=== PATIENT | male | born 1990 | race Caucasian/White ===

== ENCOUNTER 2022-10-24 11:52 | Inpatient (IN) | payer OTHER, MEDICAID ==
[~2022-10-24 11:52] MED LIST: LACTATED RINGERS 1,000 ML IV ONE; LACTATED RINGERS 100 ML IV ONE
[2022-10-24 12:26] LABS: BASOPHILS % (AUTO) 0.6 %; EOSINOPHILS # (AUTO) 0.3 10^3/uL (0.0-0.7); EOSINOPHILS % (AUTO) 3.7 %; HCT - HEMATOCRIT 41.1 % (42.0-52.0); HGB - HEMOGLOBIN 14.1 g/dL (14.0-18.0); LYMPHOCYTES % (AUTO) 29.2 %; MEAN CORPUSCULAR HEMOGLOBIN 29.4 pg (27.0-31.0); MEAN CORPUSCULAR HGB CONC 34.3 g/dL (32.0-36.0); MEAN CORPUSCULAR VOLUME 85.8 fL (80.0-94.0); MEAN PLATELET VOLUME 9.8 fL (7.4-11.4); MONOCYTES # (AUTO) 0.6 10^3/uL (0.0-1.0); MONOCYTES % (AUTO) 8.3 %; NEUTROPHILS % (AUTO) 57.5 %; PLT - PLATELET COUNT 205 10^3/uL (130-450); RED BLOOD COUNT 4.79 10^6/uL (4.70-6.10); RED CELL DISTRIBUTION WIDTH 12.8 % (12.0-15.0)
[2022-10-24 12:27] LABS: BILIRUBIN,URINE NEGATIVE (NEGATIVE); GLUCOSE, URINE (UA) NEGATIVE (NEGATIVE); KETONES,URINE (UA) NEGATIVE (NEGATIVE); LEUKOCYTE ESTERASE, URINE NEGATIVE (NEGATIVE); NITRITE,URINE NEGATIVE (NEGATIVE); OCCULT BLOOD,URINE NEGATIVE (NEGATIVE); PROTEIN,URINE NEGATIVE (NEGATIVE); UROBILINOGEN,URINE 0.2 (NORMAL) E.U./dL (NORMAL)
[2022-10-24 12:35] LABS: CLARITY,URINE CLEAR (CLEAR)
[2022-10-24 12:50] LABS: ALBUMIN 4.3 g/dL (3.2-5.5); ALBUMIN/GLOBULIN RATIO 1.1 (1.0-2.2); BILIRUBIN,TOTAL 0.6 mg/dL (0.2-1.0); CALCIUM 8.9 mg/dL (8.5-10.3); CREATININE 0.7 mg/dL (0.6-1.2); POTASSIUM 3.6 mmol/L (3.5-5.0); TOTAL PROTEIN 8.1 g/dL (6.7-8.2)
--- NOTE | 2022-10-24 15:23 | ED Physician Documentation ---
History of Present Illness - Stated complaint Stated Complaint: ABD PX - Chief complaint Chief Complaint: Abd Pain - Additonal information Additional information: 32-year-old male presents emergency department for evaluation of 24 hours pain in his right lower quadrant with some radiation to the right groin and testicle. He has had some mild diarrhea. Some nausea no vomiting. No fevers. No urinary symptoms or hematuria. No history of similar. No pertinent past surgical history. Patient does have a history of hypertension for which he takes medication as well as Lexapro for anxiety/depression Review of Systems Constitutional: reports: Reviewed and negative Throat: reports: Reviewed and negative Cardiac: reports: Reviewed and negative Respiratory: reports: Reviewed and negative GI: reports: Abdominal Pain, Nausea. denies: Vomiting : reports: Reviewed and negative Skin: reports: Reviewed and negative PD PAST MEDICAL HISTORY - Present Medications Home Medications: Ambulatory Orders Medication Instructions Recorded Confirmed Escitalopram [Lexapro] 10 mg PO DAILY 10/24/22 10/24/22 HYDROcod/ACETAM 5/325 [[place] 5/325] 1 each PO Q6H PRN #25 tablet 10/24/22 amLODIPine [Norvasc] 5 mg PO DAILY 10/24/22 10/24/22 - Allergies Allergies/Adverse Reactions: Allergies Allergy/AdvReac Type Severity Reaction Status Date / Time No Known Drug Allergies Allergy Verified 10/24/22 12:04 PD ED PE NORMAL - General General: Alert and oriented X 3, No acute distress - HEENT HEENT: PERRL - Cardiac Cardiac: RRR, No murmur - Respiratory Respiratory: No respiratory distress, Clear bilaterally - Abdomen Abdomen: Normal bowel sounds, Soft. No: Non tender (Mild tenderness elicited very low in the right lower quadrant without guarding or rebound. Unremarkable male exam. Abdominal exam was limited somewhat by body habitus) - Back Back: No CVA TTP, No spinal TTP - Derm Derm: Normal color, Warm and dry - Extremities Extremities: No deformity, No tenderness to palpate - Neuro Neuro: Alert and oriented X 3, vamp marker 2-12 intact Eye Opening: Spontaneous Motor: Obeys Commands Verbal: Oriented GCS Score: 15 Results - Vitals Vitals: Vital Signs - 24 hr 10/24/22 10/24/22 12:00 15:37 Temperature 36.8 C Heart Rate 82 80 Respiratory 18 18 Rate Blood Pressure 159/93 H 166/97 H O2 Saturation 99 100 Oxygen O2 Source Room air - Labs Labs: Laboratory Tests 10/24/22 10/24/22 10/24/22 12:06 12:20 12:20 WBC 7.0 RBC 4.79 Hgb 14.1 Hct 41.1 L MCV 85.8 MCH 29.4 MCHC 34.3 RDW 12.8 Plt Count 205 MPV 9.8 Neut # (Auto) 4.0 Lymph # (Auto) 2.0 [place] # (Auto) 0.6 Eos # (Auto) 0.3 Baso # (Auto) 0.0 Absolute Nucleated RBC 0.00 Nucleated RBC % 0.0 Sodium 137 Potassium 3.6 Chloride 102 Carbon Dioxide 27 Anion Gap 8.0 BUN 13 Creatinine 0.7 Estimated GFR (MDRD) 130 Glucose 106 H Calcium 8.9 Total Bilirubin 0.6 AST 32 ALT 68 H Alkaline Phosphatase 90 Total Protein 8.1 Albumin 4.3 Globulin 3.8 Albumin/Globulin Ratio 1.1 Lipase 35 Urine Color YELLOW Urine Clarity CLEAR Urine pH 7.0 Ur Specific [place] 1.015 Urine Protein NEGATIVE Urine Glucose (UA) NEGATIVE Urine Ketones NEGATIVE Urine Occult Blood NEGATIVE Urine Nitrite NEGATIVE Urine Bilirubin NEGATIVE Urine Urobilinogen 0.2 (NORMAL) Ur Leukocyte Esterase NEGATIVE Ur Microscopic Review NOT INDICATED Urine Culture Comments NOT INDICATED - Rads (name of study) CT abd Radiology: Final report received (Mild early appendicitis. No findings of perforation or abscess are seen) PD Medical Decision Making - ED course Complexity details: reviewed results, re-evaluated patient, considered differential, d/w patient, d/w consultant teacher (Cirilo) ED course: 32-year-old male presents to the emergency department for evaluation of acute right lower quadrant abdominal pain with radiation to the right groin and testicle. Symptoms began yesterday. Some nausea no vomiting. No fevers. On exam he does have mildly tender right lower quadrant. Exam was somewhat limited due to body habitus. We did obtain a CBC and electrolytes here in the emergency department and no acute worrisome findings were seen such as leukocytosis or renal derangement. We did proceed to do a CT of the abdomen looking for renal or ureter colic versus possible acute appendectomy. The radiologist is interpreted the findings as early appendicitis. I discussed the CT finding with Dr. Julius Kerr surgeon on-call. The plan is to take the patient to the operating room later this grecia valenzuela. I will administer a dose of Zosyn. Dr. Kerr has requested that we make a prepack of pain medication available to the patient postoperatively which I have also prescribed. Patient is NPO. Patient is aware of the plan and findings. Further care to be dictated by the surgical team. Departure - Departure Disposition: ED Transfer to [facility] Clinical Impression: Acute appendicitis Qualifiers: Acute appendicitis type: other Qualified Code(s): K35.890 - Other acute appendicitis without perforation or gangrene; K35.89 - Other acute appendicitis Prescriptions: HYDROcod/ACETAM 5/325 [[place] 5/325] 1 each PO Q6H PRN #25 tablet PRN Reason: Pain
[2022-10-24] MEDS ORDERED: iohexoL-300 100 ML VIAL ONE (15:25)
[2022-10-24] MEDS ORDERED: iohexoL-300 100 ML VIAL IVP ONE (15:53)
--- NOTE | 2022-10-24 16:05 | CT Report ---
PROCEDURE: ABDOMEN/PELVIS W INDICATIONS: RLQ pain radiates to testicle CONTRAST: 100ml omni 300 TECHNIQUE: After the administration of IV contrast, 5 mm thick sections acquired from the diaphragms to the symp hysis. 5 mm thick coronal and sagittal reformats were acquired. For radiation dose reduction, the f ollowing was used: automated exposure control, adjustment of mA and/or kV according to patient size. COMPARISON: None. FINDINGS: Image quality: Excellent. ABDOMEN: Lung bases: Lung bases are clear. Heart size is normal. A pericardial cyst is noted on the right, as on series 3 image 5, measuring 2.6 cm. Solid organs: Diffuse fatty liver infiltration can be seen. The liver is prominent in size. No foca l suspicious liver lesions are seen. The spleen is enlarged, measuring 17.2 cm in greatest axial dime nsion. No adrenal nodules. Kidneys demonstrate normal size and enhancement, without hydronephrosis. Peritoneum and bowel: In this patient with this given history, scrutiny is given to the appendix. Th e appendix is mildly hyperenhancing, with wall thickening, with a maximum caliber of 7 mm. Mild surro unding inflammatory change can be seen. This can be seen on series 6 images 36 through 41 and on seri es 3 images 55 through 72. No findings of perforation or abscess can be seen. No dilated loops of small bowel are seen. No significant colonic abnormality can be seen. The stomach is relatively decompressed. Nodes and vessels: No retroperitoneal or mesenteric adenopathy by size criteria. Aorta and inferior vena cava are normal in size. Incidental note is made of a retroaortic left renal vein. Miscellaneous: A mild fat-containing periumbilical hernia is seen. PELVIS: Genitourinary: Bladder wall thickness is normal. Miscellaneous: No inguinal hernias or adenopathy. Bones: No suspicious bony lesions. No vertebral body compression fractures. IMPRESSION: Mild/early appendicitis. No findings of perforation or abscess are seen. Additional findings: Right-sided pericardial cyst Enlarged, fatty liver Splenomegaly Retroaortic left renal vein Fat-containing periumbilical hernia Note: Case discussed by telephone with Kavita Christian at 3:03 PM [place] time on 10/24/2022. Reviewed by: Konstantin Jones MD on 10/24/2022 3:04 PM [place] Approved by: Konstantin Jones MD on 10/24/2022 3:04 PM [facility] Station ID: [id number]
[2022-10-24] MEDS ORDERED: SODIUM CHLORIDE 0.9% 1,000 ML IV STA (16:42)
[2022-10-24] MEDS ORDERED: oxyCODONE/ACET 5/325 Prepack 4 PO STA (16:50)
[2022-10-24] MEDS ORDERED: PIPERACILLIN/TAZOBACTAM 3.375 GM in SODIUM CHLORIDE 0.9% MINIBAG 100 ML IV STA (16:52)
[2022-10-24] MEDS ORDERED: fentaNYL 100 MCG/2 ML VIAL ONE ×2 (18:54→22:18)
[2022-10-24] MEDS ORDERED: PROPOFOL 200 MG/20 ML VIAL IVP ONE (18:54)
[2022-10-24] MEDS ORDERED: MIDAZOLAM 2 MG/2 ML VIAL ONE (18:54)
[2022-10-24] MEDS ORDERED: ROCURONIUM 50 MG/5 ML VIAL ONE ×2 (18:54→20:14)
[2022-10-24] MEDS ORDERED: BUPIVACAINE 0.5% PF 30 ML VIAL ONE (19:09)
[2022-10-24] MEDS ORDERED: LIDOCAINE MPF 2%-EPI 1:200000 20 ML VIAL ONE (19:09)
--- NOTE | 2022-10-24 19:13 | ANESTHESIA ---
Pre-Anesthesia VS, & Labs - Diagnosis acute appendicitis - Procedure Lap Appy Vital Signs: Temp Pulse Resp BP Pulse Ox O2 Flow Rate 36.8 C 79 18 151/93 H 99 10/24/22 18:52 10/24/22 18:52 10/24/22 18:52 10/24/22 18:52 10/24/22 18:52 Height: 5 ft 9 in Weight (kg): 142.428 kg Body Mass Index: 46.3 BMI Classification: Morbidly Obese - NPO >8 hours - Lab Results Current Lab Results: Laboratory Tests 10/24/22 12:20: Sodium 137, Potassium 3.6, Chloride 102, Carbon Dioxide 27, Anion Gap 8.0, BUN 13, Creatinine 0.7, Estimated GFR (MDRD) 130, Glucose 106 H, Calcium 8.9, Total Bilirubin 0.6, AST 32, ALT 68 H, Alkaline Phosphatase 90, Total Protein 8.1, Albumin 4.3, Globulin 3.8, Albumin/Globulin Ratio 1.1, Lipase 35 10/24/22 12:20: WBC 7.0, RBC 4.79, Hgb 14.1, Hct 41.1 L, MCV 85.8, MCH 29.4, MCHC 34.3, RDW 12.8, Plt Count 205, MPV 9.8, Neut # (Auto) 4.0, Lymph # (Auto) 2.0, [place] # (Auto) 0.6, Eos # (Auto) 0.3, Baso # (Auto) 0.0, Absolute Nucleated RBC 0.00, Nucleated RBC % 0.0 Lab results reviewed: Yes Fish Bones: 10/24/22 12:20 10/24/22 12:20 Home Medications and Allergies Home Medications: Ambulatory Orders Escitalopram [Lexapro] 10 mg PO DAILY 10/24/22 amLODIPine [Norvasc] 5 mg PO DAILY 10/24/22 Escitalopram [Lexapro] 10 mg PO DAILY 10/24/22 amLODIPine [Norvasc] 5 mg PO DAILY 10/24/22 Allergies/Adverse Reactions: Allergies Allergy/AdvReac Type Severity Reaction Status Date / Time No Known Drug Allergies Allergy Verified 10/24/22 12:04 Anes History & Medical History - Anesthetic History Family history of Anesthesia Complications: Denies Family history of Malignant Hyperthermia: Denies - Medical History Cardiovascular: reports: Hypertension Pulmonary: reports: Sleep apnea, CPAP use Gastrointestinal: reports: Other (fatty liver) Urinary: reports: None 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, bells palsy) Musculoskeletal: reports: Chronic back pain Endocrine/Autoimmune: reports: None Blood Disorders: reports: None Skin: reports: None Smoking Status: Current some day smoker (smokes cigars 3-4 times per week.) Psychosocial: reports: Depression History of Cancer?: No Other Past Medical History: fatty liver, "mass" on cerebellum - Surgical History General: reports: Colonoscopy Other Past Surgical History: wisdom teeth Exam General: Alert, Oriented x3, Cooperative, No acute distress Dental: WNL Mouth Openin Fingerbreadth Neck Mobility: Normal Mallampati classification: III Thyromental Distance: 4-6 cm Mental/Cognitive Status: Alert/Oriented X3, Normal for patient Plan Anesthesia Type: General Consent for Procedure(s) Verified and Reviewed: Yes Code Status: Attempt Resuscitation ASA classification: 3-Severe systemic disease Is this case an emergency?: Yes
--- NOTE | 2022-10-24 19:24 | HISTORY & PHYSICAL EXAMINATION ---
Chief Complaint - Chief Complaint Chief Complaint: right lower quadrant pain x 24 hours History of Present Illness - Admitted From Admitted From:: ED - History Obtained From Records Reviewed: yes History obtained from: pt Exam Limitations: none - History of Present Illness HPI Comment/Other: no n/v. last pm this am. 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 - Past Surgical History General: reports: Colonoscopy Other past surgical history: wisdom teeth - POLST Patient has POLST: No Meds/Allgy - Home Medications Home Medications: Ambulatory Orders Medication Instructions Recorded Confirmed Escitalopram [Lexapro] 10 mg PO DAILY 10/24/22 10/24/22 HYDROcod/ACETAM 5/325 [[place] 5/325] 1 each PO Q6H PRN #25 tablet 10/24/22 amLODIPine [Norvasc] 5 mg PO DAILY 10/24/22 10/24/22 - Allergies Allergies/Adverse Reactions: Allergies Allergy/AdvReac Type Severity Reaction Status Date / Time No Known Drug Allergies Allergy Verified 10/24/22 12:04 Review of Systems - Other Findings Other Findings: sleep apnea. has cpap at home 10 pt ros as above otherwise unremarkable Exam - Vital Signs Reviewed Vital Signs: Yes Vital Signs: Vital Signs x48h Temp Pulse Resp BP Pulse Ox 10/24/22 18:52 36.8 C 79 18 151/93 H 99 10/24/22 18:00 72 18 143/89 H 99 10/24/22 15:37 80 18 166/97 H 100 10/24/22 12:00 36.8 C 82 18 159/93 H 99 - Physical Exam General Appearance: positive: No acute distress, Alert Eyes Bilateral: positive: PERRL, EOMI ENT: positive: No signs of dehydration Neck: positive: No JVD Respiratory: positive: No respiratory distress, Breath sounds nml Cardiovascular: positive: Regular rate & rhythm Abdomen: positive: No distention, Other (minimal rlq tenderness without peritonitis) Neurologic/Psychiatric: positive: Oriented x3 Conclusion/Plan - Problem List (1) Acute appendicitis Conclusion/Plan: plan appendectomy. parq held and consent obtained. Qualifiers: Acute appendicitis type: other Qualified Code(s): K35.890 - Other acute appendicitis without perforation or gangrene; K35.89 - Other acute appendicitis - Lab Results Lab results reviewed: Yes Fish Bones: 10/24/22 12:20 10/24/22 12:20
[2022-10-24] MEDS ORDERED: MORPHINE 2 MG/ML CARPUJECT IVP PRN (19:30)
[2022-10-24] MEDS ORDERED: NALOXONE 0.4 MG/ML VIAL IVP PRN (19:30)
[2022-10-24] MEDS ORDERED: ONDANSETRON 4 MG/2 ML VIAL IVP PRN ×2 (19:30→21:26)
[2022-10-24] MEDS ORDERED: ATROPINE ABBOJECT 1 MG/10 ML SYRINGE IVP PRN (19:30)
[2022-10-24] MEDS ORDERED: HYDROmorphone 0.5 MG/0.5 ML SYRINGE IVP PRN ×2 (19:30→21:26)
[2022-10-24] MEDS ORDERED: ONDANSETRON 4 MG/2 ML VIAL ONE (19:44)
[2022-10-24] MEDS ORDERED: DEXAMETHASONE 4 MG/ML VIAL ONE (19:44)
[2022-10-24] MEDS ORDERED: LACTATED RINGERS 1,000 ML IV SCH (20:00)
[2022-10-24] MEDS ORDERED: HYDROmorphone 1 MG/ML CARPUJECT ONE (20:15)
[2022-10-24] MEDS ORDERED: LACTATED RINGERS 1,000 ML IV ONE (21:05)
[2022-10-24] MEDS ORDERED: SUGAMMADEX 200 MG/2 ML VIAL IVP ONE ×2 (21:06)
[2022-10-24] MEDS ORDERED: KETOROLAC 30 MG/ML VIAL ONE (21:09)
[2022-10-24] MEDS ORDERED: BUPIVACAINE 0.5% PF 30 ML VIAL INFIL ONE (21:12)
[2022-10-24] MEDS ORDERED: LIDOCAINE MPF 2%-EPI 1:200000 10 ML VIAL SUBQ ONE (21:13)
[2022-10-24] MEDS ORDERED: HYDROcod/ACETAM 5/325 MG TABLET PO PRN (21:26)
--- NOTE | 2022-10-24 21:33 | OPERATIVE REPORT ---
Operative Report - General Procedure Date: 10/24/22 Planned Procedure: lap appendectomy Pre-Op Diagnosis: acute appendicitis Procedure Performed: lap appendectomy extra degree difficulty Post Op Diagnosis: acute appenditis - Procedure Note Primary Surgeon: ora ferrer Anesthesia Technique: General ET tube, Local Pathology: appendix Estimated Blood Loss (mL): 5 Drain/Tube Type: Other (none) Indications: appendicitis Findings: retrocecal appendix and adherent back side colon up to the liver and duodenum making surgery unusually difficult Complications: none - Other Other Information/Narrative: The patient was properly identified brought to the operating room and placed in supine position. General endotracheal anesthesia was induced. Sequential com pression devices were placed. He was prepped and draped in a sterile fashion. He had previously been given antibiotics 2 hours earlier. Local anesthetic was given to incision areas. He had mild weakness at his umbilicus however no hernia. Incision was made 3 cm caudad of the umbilicus. Dissection proceeded down to the fascia fascia was incised lifted upwards and abdomen entered with a Veress needle. CO2 was insufflated to a pressure of 15. A 12 mm trocar was placed with 30 degree scope. There was no evidence of injury from Veress needle or trocar placement. Under direct vision a 5 mm trocar was placed suprapubic and a 5 mm trocar was placed in the right upper quadrant. The base of the appendix was identified. Except for 2 cm it was completely retrocecal under the right colon up to the liver edge and adherent to the duodenum. The appendix was approximately 8 cm long or longer. An hour of time was taken to carefully mobilized the appendix from underneath the right colon and off from the duodenum. The mesoappendix was very long given the appendix was 8 to 10 cm long. Some of the mesoappendix was taken down with cautery right at the appendix and the more thick mesoappendix was carefully taken down with 3 vascular loads. The base of the appendix had previously been divided with an Endo RIMA intestinal load. Appendix was removed. The abdomen was irrigated. Hemostasis was assured. Trochars were removed and again hemostasis assured. CO2 was evacuated and fascia at the infraumbilical site closed with a running 0 Vicryl suture. Subcutaneous tissue was irrigated and skin loosely reapproximated with buried interrupted or running 4-0 Monocryl subcuticular suture. Dressings were applied. He tolerated the procedure well was awakened and brought to recovery in good condition.
[2022-10-24] MEDS ORDERED: NALOXONE 0.4 MG/ML VIAL ONE (21:38)
[2022-10-24] MEDS ORDERED: OXYMETAZOLINE HCL 100 SPRAYS BOTTLE ONE (21:52)
[2022-10-24] MEDS: fentaNYL 100 MCG/2 ML VIAL IVP PRN ×4 (22:20→22:45)
--- NOTE | 2022-10-24 22:28 | CONSULTATION NOTE ---
Consultation Report: Emergence note: TOF 4/4 and reversed with 2mg/Kg sugammadex. Patient was taking adequate TV >500ml and was reaching towards ETT and attempting to sit up. Patient was extubated and placed on 10L O2 via mask. Immediately after extubation, he had snoring respirations and maintaining airway patency became difficult despite jaw lift and positive pressure. His O2 sats dropped into the 70s. A 32FR nasal airway (right nare) and a 100mm oral airway were inserted and airway patency was verified. Patient was placed on PS 15, and PEEP of 5. With airway patent (TV>500ml and ETCO2 present) continued to have difficulty maintaining O2 saturations (High 80s). Patient would not arouse so narcan 0.4mg was given IV. Patient's mentation improved and airways were removed when he could follow directions. He was able to maintain airway patency but began coughing blood tinged sputum. Upon arrival to the PACU, patient was alert, conversing but continued to cough up blood tinged sputum. Right nare was sprayed with oxymetazoline nasal spray x3 for suspected bleeding. O2 sats improved to low 90s with nasal cannula in PACU. Bilateral breath sounds were equal with rhonchi throughout all lung [place]. Chest xray was obtained and was normal except for an enlarged heart. Case discussed with Dr. Kerr and patient will be staying overnight for observation. Discussed events with patient and patient's spouse. I advised he see a PCP [facility] for severe sleep apnea followup.
--- NOTE | 2022-10-24 22:39 | XRAY Report ---
PROCEDURE: Chest 1 View X-Ray INDICATIONS: coughing blood. rule out pulmonary edema TECHNIQUE: One view of the chest was acquired. COMPARISON: None. FINDINGS: Surgical changes and devices: None. Lungs and pleura: No pleural effusions or pneumothorax. Lungs are clear. Mediastinum: Mediastinal contours appear normal. Heart size is enlarged. Bones and chest wall: No suspicious bony lesions. Overlying soft tissues appear unremarkable. IMPRESSION: No acute pulmonary process. Reviewed by: Gabi Avalos MD on 10/24/2022 10:38 PM [facility] Approved by: Gabi Avalos MD on 10/24/2022 10:38 PM [facility] Station ID: [id number]
[2022-10-24] MEDS ORDERED: KETOROLAC 15 MG/ML VIAL ONE (22:43)
[2022-10-24] MEDS ORDERED: KETOROLAC 15 MG/ML VIAL IVP SCH (23:00)
[2022-10-25] MEDS ORDERED: HYDROmorphone 0.5 MG/0.5 ML SYRINGE ONE (00:02)
[2022-10-25] MEDS ORDERED: ONDANSETRON 4 MG/2 ML VIAL IVP PRN (02:14)
[2022-10-25] MEDS: HYDROmorphone 0.5 MG/0.5 ML SYRINGE IVP PRN ×2 (02:24→08:45)
[2022-10-25 09:02] LABS: ABG PH 7.39 (7.35-7.45)
[2022-10-25 09:03] LABS: ABG BASE EXCESS -0.5 mmol/L (-2.0-3.0); ABG HCO3 24.4 mmol/L (22.0-26.0); ABG OXYGEN SATURATION 91 % (94-98); ABG PCO2 41 mmHg (34-45); ABG PO2 57 mmHg (80-100); ABG TCO2 25.7 MMOL/L (21.0-29.0); ALLEN TEST POSITIVE
[2022-10-25] MEDS ORDERED: HYDROmorphone 1 MG/ML CARPUJECT ONE (09:03)
[2022-10-25] MEDS: HYDROcod/ACETAM 5/325 MG TABLET PO PRN (12:59)
--- NOTE | 2022-10-25 14:38 | PROVIDER PROGRESS NOTE ---
Subjective - Subjective Pt reports feeling: Improved (breathing improved. no appetite) Objective - Vital Signs/Intake & Output Reviewed Vital Signs: Yes Vital Signs: Vital Signs x48h Temp Pulse Pulse Resp BP BP Pulse Ox 10/25/22 11:16 37.0 C 88 22 123/65 94 10/25/22 09:40 10/25/22 07:47 37.5 C 105 H 24 118/65 86 L O2 Flow Rate 10/25/22 11:16 15 10/25/22 09:40 15 10/25/22 07:47 Intake & Output: Intake & Output 10/22/22 10/23/22 10/24/22 10/25/22 23:59 23:59 23:59 23:59 Intake Total 1100 Balance 1100 - Objective General Appearance: positive: No acute distress, Alert Eyes Bilateral: positive: PERRL, EOMI Neck: positive: No JVD, Trachea midline Respiratory: positive: No respiratory distress Abdomen: positive: No distention, Other (benign abdomen) Neurologic/Psychiatric: positive: Oriented x3 - Lab Results Fish Bones: 10/24/22 12:20 10/24/22 12:20 Other Labs: Lab Results x24hrs 10/25/22 10/24/22 Range/Units 08:40 17:40 Bld Gas Analysis Time 0847 Sample Site RIGHT RADIAL ABG pH 7.39 (7.35-7.45) ABG pCO2 41 (34-45) mmHg ABG pO2 57 L (80-100) mmHg ABG HCO3 24.4 (22.0-26.0) mmol/L ABG Total CO2 25.7 (21.0-29.0) MMOL/L ABG O2 Saturation 91 L (94-98) % ABG Base Excess -0.5 (-2.0-3.0) mmol/L Del Test POSITIVE O2 Delivery Device OXYMIZER O2 Liters/Min 15.00 LPM SARS-CoV-2 (PCR) NOT DETECTED Assessment/Plan - Problem List (1) Acute appendicitis Impression: low sats post surgery with low lung volumes and copious secretions. slowly improving encouraged out of bed diet as tolerated home when RA sats 88 to 90 % he has very significant sleep apnea and may have had mild negative pressure pulmonary edema although not seen on cxr Qualifiers: Acute appendicitis type: other Qualified Code(s): K35.890 - Other acute appendicitis without perforation or gangrene; K35.89 - Other acute appendicitis
[2022-10-25] MEDS ORDERED: BENZOCAINE/MENTHOL LOZENGE MM PRN (19:19)
[2022-10-25] MEDS: IBUPROFEN 400 MG TABLET PO PRN (21:16)
[2022-10-25] MEDS: ACETAMINOPHEN 325 MG TABLET PO PRN (21:16)
[2022-10-25] MEDS: FAMOTIDINE 20 MG TABLET PO SCH (21:16)
[2022-10-26] MEDS: HYDROcod/ACETAM 5/325 MG TABLET PO PRN ×2 (02:27→13:07)
[2022-10-26] MEDS: ACETAMINOPHEN 325 MG TABLET PO PRN ×3 (05:56→21:22)
[2022-10-26] MEDS: IBUPROFEN 400 MG TABLET PO PRN ×2 (05:57→17:21)
[2022-10-26] MEDS: amLODIPine 5 MG TABLET PO SCH (09:02)
[2022-10-26] MEDS: ESCITALOPRAM 10 MG TABLET PO SCH (09:02)
[2022-10-26] MEDS: FAMOTIDINE 20 MG TABLET PO SCH ×2 (09:02→21:22)
--- NOTE | 2022-10-26 11:31 | PROVIDER PROGRESS NOTE ---
Subjective - Prog Note Date Prog Note Date: 10/26/22 - Subjective Pt reports feeling: Improved (breathing improved and appetite improved.) Objective - Vital Signs/Intake & Output Reviewed Vital Signs: Yes Vital Signs: Vital Signs x48h Temp Pulse Resp BP Pulse Ox O2 Flow Rate 10/26/22 08:49 36.9 C 100 18 139/70 H 95 15 10/26/22 05:07 37.8 C 98 22 127/66 94 15 Intake & Output: Intake & Output 10/23/22 10/24/22 10/25/22 10/26/22 23:59 23:59 23:59 23:59 Intake Total 1100 890 810 Output Total 1400 Balance 1100 890 -590 - Objective General Appearance: positive: No acute distress, Alert Eyes Bilateral: positive: PERRL, EOMI Respiratory: positive: No respiratory distress Abdomen: positive: Non-tender, No distention Neurologic/Psychiatric: positive: Oriented x3 - Lab Results Fish Bones: 10/24/22 12:20 10/24/22 12:20 Assessment/Plan - Problem List (1) Acute appendicitis Impression: low sats and significant pulmonary secretions following surgery. improving. home when room air sats > 88% d/c ivf otherwise continue present care and respiratory care per RT Qualifiers: Acute appendicitis type: other Qualified Code(s): K35.890 - Other acute appendicitis without perforation or gangrene; K35.89 - Other acute appendicitis
--- NOTE | 2022-10-26 16:49 | PROVIDER PROGRESS NOTE ---
Subjective - Subjective Subjective: patient and/or family are requesting transfer to [facility] Objective - Vital Signs/Intake & Output Vital Signs: Vital Signs x48h Temp Pulse Resp BP Pulse Ox O2 Flow Rate 10/26/22 15:56 37.8 C 101 H 22 140/74 H 92 10 10/26/22 14:21 13 10/26/22 13:46 92 10 10/26/22 13:16 36.5 C 101 H 20 124/66 92 10 10/26/22 08:49 36.9 C 100 18 139/70 H 95 15 Intake & Output: Intake & Output 10/23/22 10/24/22 10/25/22 10/26/22 23:59 23:59 23:59 23:59 Intake Total 9228 991 8180 Output Total 1400 Balance 1100 890 -110 - Lab Results Fish Bones: 10/24/22 12:20 10/24/22 12:20 Assessment/Plan - Problem List (1) Acute appendicitis Impression: improving. benign abdomen tolerating diet. afebrile clinically he had postop negative pressure pulmonary edema with pink frothy secretions and low sats. his bmi is 46 and he has severe sleep apnea. he is improving with standard supportive measures. request has been made for transfer to [facility] where pulmonary doctors are available. I called and discussed transfer with surgery and tank house operator helper. surgery felt he did not need to be transferred to surgery. medicine would be better. supervisor train operations informed me they have 113 patients in the ED and 40 are boardin g/ waiting for a room. transfer is currently not possible to [facility]. I have asked [facility] nurse to inform him transfer is not possible due to no beds available. He is improving. I do not recommend he leave until room air sats >88 %. Qualifiers: Acute appendicitis type: other Qualified Code(s): K35.890 - Other acute appendicitis without perforation or gangrene; K35.89 - Other acute appendicitis
[2022-10-26] MEDS: ENOXAPARIN 40 MG/0.4 ML SYRINGE SUBQ SCH (21:22)
[2022-10-27] MEDS: IBUPROFEN 400 MG TABLET PO PRN ×4 (00:03→20:51)
[2022-10-27] MEDS: ACETAMINOPHEN 325 MG TABLET PO PRN ×3 (06:33→20:52)
[2022-10-27] MEDS: FAMOTIDINE 20 MG TABLET PO SCH ×2 (09:01→20:51)
[2022-10-27] MEDS: amLODIPine 5 MG TABLET PO SCH (09:01)
[2022-10-27] MEDS: ESCITALOPRAM 10 MG TABLET PO SCH (09:01)
--- NOTE | 2022-10-27 09:32 | PROVIDER PROGRESS NOTE ---
Subjective - Subjective Pt reports feeling: Improved Subjective: sitting in chair. appears well. still having chest discomfort however improved Objective - Vital Signs/Intake & Output Reviewed Vital Signs: Yes Vital Signs: Vital Signs x48h Temp Pulse Resp BP Pulse Ox O2 Flow Rate 10/27/22 08:58 37.3 C 89 16 124/68 96 10/27/22 08:35 10 10/27/22 05:00 37.0 C 88 20 135/73 H 98 10 Intake & Output: Intake & Output 10/24/22 10/25/22 10/26/22 10/27/22 23:59 23:59 23:59 23:59 Intake Total 4665 962 8441 790 Output Total 1400 Balance 1100 890 640 790 - Objective General Appearance: positive: No acute distress, Alert Eyes Bilateral: positive: PERRL, EOMI, No scleral icterus Neck: positive: No JVD, Trachea midline Respiratory: positive: No respiratory distress Abdomen: positive: Non-tender, No distention Neurologic/Psychiatric: positive: Oriented x3 - Lab Results Fish Bones: 10/24/22 12:20 10/24/22 12:20 Assessment/Plan - Problem List (1) Acute appendicitis Impression: he had classic findings on exam and symptoms of immediate postop negative pressure pulmonary edema. he is improving with supportive care. benign abdomen. tolerating diet. I do not believe additional work up would be beneficial. home when comfortable ambulating and room air sats >88 to 90 Qualifiers: Acute appendicitis type: other Qualified Code(s): K35.890 - Other acute appendicitis without perforation or gangrene; K35.89 - Other acute appendicitis
[2022-10-27] MEDS: ENOXAPARIN 40 MG/0.4 ML SYRINGE SUBQ SCH (09:59)
[2022-10-27] MEDS: HYDROcod/ACETAM 5/325 MG TABLET PO PRN (10:31)
--- NOTE | 2022-10-27 10:39 | XRAY Report ---
PROCEDURE: Chest 2 View X-Ray INDICATIONS: clinically neg pressure pulmonary edema postop TECHNIQUE: 2 views of the chest were acquired. COMPARISON: Single view the chest dated 10/24/2022 FINDINGS: Surgical changes and devices: None. Lungs and pleura: There are new bilateral patchy perihilar radiopacities when compared with the study from 10/24/2022. No pleural effusion or pneumothorax. Mediastinum: Mediastinal contours are normal. Heart size is enlarged, as before. Bones and chest wall: No suspicious bony abnormalities. Soft tissues appear unremarkable. IMPRESSION: Cardiomegaly and patchy perihilar pulmonary radiopacities. Differential considerations include pulmon opal edema, early ARDS, or multifocal infection. Reviewed by: Candice Evangelista MD on 10/27/2022 10:38 AM [facility] Approved by: Candice Evangelista MD on 10/27/2022 10:38 AM [facility] Station ID: [id number]
[2022-10-27] MEDS ORDERED: polyethylene glycoL 3350 17 GM PACKET PO PRN ×2 (17:15→17:16)
[2022-10-28] MEDS: HYDROcod/ACETAM 5/325 MG TABLET PO PRN (00:09)
[2022-10-28] MEDS: amLODIPine 5 MG TABLET PO SCH (08:59)
[2022-10-28] MEDS: FAMOTIDINE 20 MG TABLET PO SCH (08:59)
[2022-10-28] MEDS: ENOXAPARIN 40 MG/0.4 ML SYRINGE SUBQ SCH (08:59)
[2022-10-28] MEDS: ESCITALOPRAM 10 MG TABLET PO SCH (08:59)
--- NOTE | 2022-10-28 16:35 | Discharge Plan ---
Discharge Plan Problem Reviewed?: Yes Disposition: Home, Self Care Condition: Good Prescriptions: HYDROcod/ACETAM 5/325 [[place] 5/325] 1 each PO Q6H PRN #25 tablet PRN Reason: Pain Diet: Regular Activity Restrictions: No Restrictions Shower Restrictions: No Driving Restrictions: No Health Concerns: recent appendicitis and postop negative pressure pulmonary edema Assessment: doing well 10/28/2022 Additional Instructions or Follow Up instructions: call the surgery office for a follow up appointment and any concerns [phone] No Smoking: If you smoke, Please STOP! Call for help.
[2022-10-28 18:40] VITALS: BP 158/77
--- NOTE | 2022-10-28 18:49 | DISCHARGE SUMMARY ---
"Discharge Summary Admit Date: 10/24/22 Discharge Date: 10/28/22 Discharging Provider: ora ferrer Code Status: Attempt Resuscitation Discharge Facility Name: [facility] - DIAGNOSES Admission Diagnoses: appendicitis Discharge Diagnoses with Status of Each Condition: appendicitis postop negative pressure pulmonary edema requiring oxygen support and pulmonary toilet home in good condition 10/28/2022 - HPI History of Present Illness: 1 day of abdominal pain and acute appendicitis. hx severe sleep apnea. bmi 46.6. postop negative pressure pulmonary edema requiring oxygen for a few days - CONSULTS | PROCEDURES Consultations: none Procedures: lap appy and respiratory therapy - HOSPITAL COURSE Hospital Course: as above - ALLERGIES Allergies/Adverse Reactions: Allergies Allergy/AdvReac Type Severity Reaction Status Date / Time No Known Drug Allergies Allergy Verified 10/24/22 12:04 - MEDICATIONS Home Medications: Ambulatory Orders Medication Instructions Recorded Confirmed Escitalopram [Lexapro] 10 mg PO DAILY 10/24/22 10/24/22 HYDROcod/ACETAM 5/325 [[employer] 5/325] 1 each PO Q6H PRN #25 tablet 10/24/22 amLODIPine [Norvasc] 5 mg PO DAILY 10/24/22 10/24/22 - PHYSICAL EXAM AT DISCHARGE General Appearance: positive: No acute distress, Alert Eyes Bilateral: positive: Normal inspection, EOMI ENT: positive: No signs of dehydration Neck: positive: No JVD, Trachea midline Respiratory: positive: No respiratory distress Abdomen: positive: Non-tender, No distention Neurologic/Psychiatric: positive: Oriented x3 - LABS Result Diagrams: 10/24/22 12:20 10/24/22 12:20 - FOLLOW UP Follow Up: ora ferrer md [phone]"
--- NOTE | 2022-10-29 09:28 | ANESTHESIA POST OP EVALUATION ---
Anesthesia Post Eval - Post Anesthesia Eval Vitals: Last Vital Signs Temp 37.2 C 10/28/22 18:20 Pulse 88 10/28/22 18:20 Resp 18 10/28/22 18:20 BP 158/77 H 10/28/22 18:20 Pulse Ox 98 10/28/22 16:23 O2 Flow Rate 1 10/28/22 13:00 CV Function Including HR & BP: Stable Pain Control: Satisfactory Nausea & Vomiting: Negative Mental Status: Baseline Respiratory Status: Other Hydration Status: Satisfactory Anesthesia Complications: Other (suspect negative pressure pulmonary edema and severe sleep apnea. Supportive care until resolved.) - Other Details/Therapies Other Details/Therapies: See note regarding extubation/emergence. Patient alert, conversing but requires O2 via NC to maintain saturation.
== END 2022-10-28 18:20 | disposition home or self-care (01) | DRG 341 ==
LOC: ED 11:52 → OR 19:05 → MS2 22:50 → OR 10-25 14:31 → MS2 10-25 14:34 → OBSVTOIN 10-27 17:15
PROVIDERS: ADMIT Surgery; ATTEND Surgery
PROC: 0DTJ4ZZ Resection of Appendix, Percutaneous Endoscopic Approach (ICD-10-PCS; principal; 2022-10-24 19:30)
DX: K35.80 Unspecified acute appendicitis (principal); J81.0 Acute pulmonary edema; I10 Essential (primary) hypertension; G47.30 Sleep apnea, unspecified; F32.A Depression, unspecified; G89.29 Other chronic pain; M54.9 Dorsalgia, unspecified; F41.9 Anxiety disorder, unspecified; Z20.822 Contact with and (suspected) exposure to COVID-19; Z79.899 Other long term (current) drug therapy
CPT/HCPCS: 36415; 36600; 71045; 71046; 74177; 80053; 81003; 82803; 83690; 85025; 87635; 96365; 96372; 96375; 99284; 99285; A9270; J1170; J1650; J7120; Q9967; 81001; 87086; 96374